=== PATIENT | male | born 1960 | race Caucasian/White ===

== ENCOUNTER 2021-01-31 16:20 | Emergency (ER) | payer SELFPAY ==
[~2021-01-31] VITALS: Ht 180.3 cm; Wt 93.0 kg
--- NOTE | 2021-01-31 16:26 | NUR ---
pt ambulatory to er bed 03, states he woke up this morning at 10am w/ blurring of vision, headache 30 minutes after started having "numbness to his L side worst to upper extremity. pt states he's last known well was when he sleep last night at around 2200. pt does not have any focal deficit noted. no slurring of speech noted and states blurring of vision is better now. placed on monitor. stable vitals. awaiting md vera.
--- NOTE | 2021-01-31 16:45 | NUR ---
dr monet at bedside for eval.
[2021-01-31 17:03] LABS: BASOPHILS # (AUTO) 0.1 /CMM (0.0-0.2); BASOPHILS % (AUTO) 0.7 % (0.0-2.0); EOSINOPHILS % (AUTO) 1.3 % (0.0-6.0); HEMATOCRIT 48 % (39-51); HEMOGLOBIN 16.1 g/dL (13.5-17.5); LYMPHOCYTES # (AUTO) 3.3 /CMM (0.8-4.8); LYMPHOCYTES % (AUTO) 31.1 % (20.0-44.0); MEAN CORPUSCULAR HGB CONC 34 g/dl (31.0-36.0); MEAN CORPUSCULAR VOLUME 90 fL (80-96); MONOCYTES # (AUTO) 0.7 /CMM (0.1-1.30); MONOCYTES % (AUTO) 6.4 % (2.0-12.0); NEUTROPHILS # (AUTO) 6.4 /CMM (1.8-8.9); NEUTROPHILS % (AUTO) 60.5 % (43.0-81.0); PLATELET COUNT (AUTO) 249 /CMM (150-450); RED BLOOD CELL COUNT(AUTO) 5.35 MIL/uL (4.5-6.0); WHITE BLOOD COUNT (AUTO) 10.7 K/uL (4.3-11.0)
[2021-01-31 17:14] LABS: CALCIUM, SERUM 10.1 mg/dL (8.5-10.1); CARBON DIOXIDE 30 mmol/L (21-32); CHLORIDE 104 mmol/L (98-107); CREATININE 0.9 mg/dL (0.6-1.3); GLUCOSE 104 mg/dL (74-106); POTASSIUM 3.9 mmol/L (3.5-5.1); SODIUM SERUM 139 mmol/L (136-145); UREA NITROGEN, BLOOD 13 mg/dL (7-18)
[2021-01-31] MEDS ORDERED: IBUP-1955 PO (17:44)
--- NOTE | 2021-01-31 18:13 | NUR ---
Patient discharged to home in stable condition. Written and verbal after care instructions given. Patient verbalizes understanding of instruction.IV removed. Catheter intact and site benign. Pressure and 4x4 applied to site. No bleeding noted.
[2021-01-31 18:14] VITALS: BP 146/99
== END 2021-01-31 18:15 | disposition home or self-care (01) ==
LOC: ER 16:20
DX: R51.9 Headache, unspecified (principal); H43.393 Other vitreous opacities, bilateral; F10.10 Alcohol abuse, uncomplicated; F17.200 Nicotine dependence, unspecified, uncomplicated; Y90.9 Presence of alcohol in blood, level not specified; Z79.899 Other long term (current) drug therapy
CPT/HCPCS: 36415; 70450-TC; 80048-TC; 84484-TC; 85025-TC

== ENCOUNTER 2022-06-13 17:44 | Emergency (ER) | payer BC ==
[~2022-06-13] VITALS: Ht 170.2 cm; Wt 83.9 kg
[~2022-06-13 17:44] MED LIST: IBUP-1955 PO
--- NOTE | 2022-06-13 18:22 | NUR ---
TO ER BED 10. 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 BLOOD PRESSURE WAS 154/91 UPON ARRIVAL. DENIES HEADACHE AND DIZZINESS. AWAITING MD ORDERS.
--- NOTE | 2022-06-13 19:01 | NUR ---
Patient discharged to home in stable condition. Written and verbal after care instructions given. Patient verbalizes understanding of instruction.
[2022-06-13 19:02] VITALS: BP 155/76
== END 2022-06-13 19:02 | disposition home or self-care (01) ==
LOC: ER 17:53
DX: I10 Essential (primary) hypertension (principal); F17.200 Nicotine dependence, unspecified, uncomplicated; Z79.1 Long term (current) use of non-steroidal anti-inflammatories (NSAID)